=== PATIENT | male | born 1995 | race African-American/Black ===

== ENCOUNTER 2017-07-28 00:03 | Emergency (ER) | payer OTHER, SELFPAY ==
[2017-07-28 01:09] LABS: #Basophils 0.1 thou/uL (0.0-0.2); #Eosinphils 0.1 thou/uL (0.0-0.7); #Lymphocytes 3.1 thou/uL (1.20-3.40); #Monocytes 0.8 thou/uL (0.11-0.59); #Neutrophils 3.9 thou/uL (1.40-6.50); %Basophils 0.9 % (0.0-1.0); %Eosinophils 1.4 % (0.0-10.0); %Lymphocytes 38.8 % (28.0-48.0); %Monocytes 10.1 % (0.0-4.0); %Neutrophils 48.8 % (31.0-61.0); Hemoglobin 13.8 g/dL (14.0-18.0); Mean Corpuscular HGB CONC 34.1 g/dL (32.0-36.0); Mean Corpuscular Hemoglobin 32.1 pg (25.0-35.0); Mean Corpuscular Volume 94.2 fl (77.0-87.0); Mean Platelet Volume 7.1 fL (7.4-10.4); Platelet Count 238 thou/uL (130-400); RBC Distribution Width 11.6 % (11.5-14.5); White Blood Cell (WBC) Count 8.1 thou/uL (4.8-10.8)
[2017-07-28 01:24] LABS: ALT (SGPT) 15 U/L (8-55); AST (SGOT) 22 U/L (5-34); Albumin 4.3 g/dL (3.5-5.0); Alkaline Phosphatase 115 U/L (Less than 750); Anion Gap 11 mmol/L (10-20); BUN (Urea Nitrogen) 14 mg/dL (8.9-20.6); Bilirubin, Total 0.4 mg/dL (0.2-1.2); CK (CPK) 670 U/L (30-200); Calc. Creatinine Clearance 0 mL/min (70-130); Calcium 9.3 mg/dL (7.8-10.44); Carbon Dioxide 25 mmol/L (22-29); Chloride 105 mmol/L (98-107); Estimated GFR-MDRD Greater than 90; Globulin 2.6 g/dL (2.4-3.5); Glucose 101 mg/dL (70-105); Potassium 3.7 mmol/L (3.5-5.1); Protein, Total 6.9 g/dL (6.0-8.3); Sodium 137 mmol/L (136-145)
[2017-07-28 01:28] LABS: CKMB 1.8 ng/mL (0-6.6); Troponin I Less than 0.010 ng/mL (< 0.028)
[2017-07-28] MEDS ORDERED: Ketorolac Tromethamine 30 MG/ML VIAL ONE (03:17)
[2017-07-28] MEDS ORDERED: Acetaminophen 500 MG TAB ONE (03:17)
[2017-07-28 03:45] LABS: Troponin I Less than 0.010 ng/mL (< 0.028)
[2017-07-28 03:48] LABS: Bilirubin Negative (Negative); Blood, Urine Negative (Negative); Clarity CLEAR (Clear); Glucose, Urine (Dipstick) Negative (Negative); Leukocyte Negative (Negative); Nitrite Negative (Negative); Protein, Urine (Dipstick) Negative (Neg-Trace); Specific Gravity, Urine 1.012 (1.002-1.036); Urobilinogen 0.2 mg/dL (0.2-1.0); pH, Urine 5.5 (5.0-9.0)
--- NOTE | 2017-07-28 08:20 | RAD ---
CHEST 1 VIEW: HISTORY: Dyspnea. Chest pain. FINDINGS: No comparison. Cardiac silhouette is magnified by projection. Pulmonary vasculature is unremarkable . Mediastinum is midline. There is no lobar consolidation or evidence of pneumothorax. IMPRESSION: No active cardiopulmonary abnormalities are demonstrated. POS: OFF
== END 2017-07-28 04:10 | disposition home or self-care (01) ==
LOC: ERS 00:03
DX: R07.89 Other chest pain (principal); M62.82 Rhabdomyolysis
CPT/HCPCS: 36415; 71045; 80053; 81003; 82553; 84484; 85025; 85379; 93005; 96361; 96374; J1885

== ENCOUNTER 2019-09-24 05:49 | Emergency (ER) | payer SELFPAY ==
--- NOTE | 2019-09-24 08:42 | RAD ---
THREE VIEWS LEFT WRIST: COMPARISON: None. HISTORY: Fall with left wrist pain. FINDINGS: Three views of the left wrist show no evidence of acute fracture or dislocation. No soft tissue swel ling is seen. No degenerative changes are seen. IMPRESSION: No evidence of acute osseous abnormality. POS: EAA
== END 2019-09-24 07:24 | disposition short-term general hospital (02) ==
LOC: ERS 05:49
DX: S09.90XA Unspecified injury of head, initial encounter (principal); S63.502A Unspecified sprain of left wrist, initial encounter; W14.XXXA Fall from tree, initial encounter

== ENCOUNTER 2019-10-08 20:59 | Emergency (ER) | payer BC, OTHER ==
--- NOTE | 2019-10-08 22:08 | CT ---
CT Brain WO Con: 10/08/2019 9:55 PM CLINICAL HISTORY: Headache, lethargy and nose bleeds. IMAGING TECHNIQUE: Multiple CT images were obtained of the brain without IV contrast. COMPARISON: None. FINDINGS: BRAIN: Evidence of acute infarct: None. Evidence of chronic ischemic change:None. Evidence of intracranial hemorrhage: None. Evidence of midline shift: Third ventricle and septum pellucidum are midline. Ventricles: Normal. No hydrocephalus. SKULL: Intact. VISUALIZED PARANASAL SINUSES: There is mild mucosal thickening within the ethmoid air cells and sphe noid sinus. MASTOID AIR CELLS: Clear. EXTRACRANIAL SOFT TISSUES: Normal. IMPRESSION: No acute intracranial abnormality.
[2019-10-08] MEDS ORDERED: Ibuprofen 800 MG TAB ONE (23:28)
== END 2019-10-08 23:35 | disposition home or self-care (01) ==
LOC: ERS 20:59
DX: F07.81 Postconcussional syndrome (principal); R50.9 Fever, unspecified; F17.210 Nicotine dependence, cigarettes, uncomplicated
CPT/HCPCS: 70450; 87635; U0003